=== PATIENT | male | born 1945 | race Caucasian/White ===

== ENCOUNTER 2020-08-25 12:25 | Emergency (ER) | payer MEDICARE, OTHER, SELFPAY ==
[2020-08-25] VITALS (29 sets, daily range): BP systolic 101–142; BP diastolic 53–95; PULSE 89–110; RESP 16–25; TEMP 36.6–37.4; O2SAT 93–98
--- NOTE | ~2020-08-25 | XR_ITS ---
EXAMINATION: XR chest 1V portable EXAM DATE: 08/25/2020 13:37 INDICATION: Bibasilar crackles. TECHNIQUE: Portable AP frontal chest x-ray was obtained. There is no prior study for comparison. FINDINGS: Small amount of ill-defined left basilar airspace disease. The lungs are otherwise clear. There are no pleural effusions. The cardiomediastinal silhouette is within normal limits. There is no pneumothorax suspected. There is moderate right glenohumeral primary osteoarthritis. IMPRESSION: Small amount of ill-defined left basilar airspace disease, possible developing edema or i nfection. Reviewed, dictated and finalized at location B. OR VALIDATION ENGINEER IMPRESSION: Small amount of ill-defined left basilar airspace disease, possible developing edema or infection.
--- NOTE | 2020-08-25 12:32 | ED.GENADULT ---
HPI - General Adult General Source: family and EMS Mode of arrival: ambulatory Limitations: no limitations History of Present Illness HPI narrative: Juma is a 74M with a complex PMH of Parkinson's disease, BPH and prostate cancer with chronic indwelling catheter, recurrent UTI, HLD and dementia was brought to the ED by EMS. He has been total care for some time but has become worse. He had 4+ absence seizures over the weekend, more agitation/aggression and he is trying to get out of bed when he cannot walk. He has declined antieleptics in the past because they make him altered. His family can no longer take care of him and thinks he needs placement. They do not want Hospice at this time and want continued meds and therapies but he is DNR and DNI. Related Data Home Medications Medication Instructions Recorded Confirmed [facility] XP 1 drp OPHTHALMIC (EYE) Q2H 09/03/19 08/25/20 carbidopa-levodopa 1.5 tablet PO QID 09/03/19 08/25/20 up4 Probiotics Adult 1 cap PO DAILY 09/03/19 08/25/20 levetiracetam 250 mg PO BID 08/25/20 08/25/20 Allergies Allergy/AdvReac Type Severity Reaction Status Date / Time No Known Allergies Allergy Verified 01/28/20 08:33 Review of Systems Constitutional: Constitutional: Reports no additional constitutional complaints Eyes: Eyes: Reports no additional eye complaints ENT: Reports system reviewed and no additional complaints, except as documented Cardiovascular: Cardiovascular: Reports no additional cardiovascular complaints Respiratory: Respiratory: Reports no additional respiratory complaints Gastrointestinal: Gastrointestinal: Reports no additional gastrointestinal complaints Genitourinary: Genitourinary: Reports no additional male genitourinary complaints Musculoskeletal: Musculoskeletal: Reports as per HPI Integumentary/Breasts: Skin/Breast: Reports system reviewed and no additional complaints, except as docu Neurologic: Reports as per HPI Psychiatric: Psychiatric: Reports as per HPI Endocrine: Endocrine: Reports no additional endocrine complaints Hematologic/Lymphatic: Hematologic/Lymphatic: Reports no additional hematologic/lymphatic complaints Allergic/Immunologic: Allergic/Immunologic: Reports no additional allergic/immunologic complaints [facility] Past Medical History Medical History (Updated 08/27/20 @ 00:00 by Background Daemon) VANNESA (acute kidney injury) Amputation of left little finger Anemia Cataract Dementia Depression Generalized muscle weakness Hyperlipidemia Parkinsons disease Prostate cancer Surgical History Surgical History H/O hand surgery pinkey finger amputation due to work accident History of cataract removal with insertion of prosthetic lens Family History Family History Father Acute myocardial infarction Mother Family history of coronary artery disease Sibling Malignant neoplasm of prostate Social History Social History Smoking status: Never smoker Alcohol intake: never Substance use: never Substance use type: does not use Gender identity (if verbalized by the patient): Male Spiritual care concerns: No Agree to blood products: Yes Exam Const: General: no acute distress and alert Orientation/consciousness: patient oriented x3 Limitations: No altered mental status HENMT: Head: normal to inspection Eyes: Conjunctivae: conjunctivae normal Pupils: Equal, round and reactive pupils present Neck: Neck: normal visual inspection Chest: Chest palpation & inspection: normal inspection of the chest Resp: Effort & Inspection: normal respiratory effort Other: bibasilar crackles Cardio: Rate: regular rate Rhythm: regular rhythm GI: Inspection: non-distended GI Palp: Yes Soft to palpation, No Tenderness to palpation present (GI) and No Guarding due to palp
--- NOTE | 2020-08-25 12:41 | ECG_ITS ---
Measurements Intervals [place] Rate: 94 P: 50 MD: 136 QRS: 61 QRSD: 88 T: 57 QT: 335 QTc: 419 Interpretive Statements SINUS RHYTHM INCOMPLETE RIGHT BUNDLE BRANCH BLOCK BASELINE ARTIFACT- I, II, III, AVR, AVL, AVF, V1 BORDERLINE ECG Electronically Signed On 08-25-2020 13:04:04 E BUSINESS SPECIALIST by Samm Guzman D.O.
[2020-08-25 13:09] LABS: Basophils Absolute Auto 0.06 K/mm3 (0.00-0.10); Basophils Percent Auto 0.8 % (0.0-1.0); Eosinophils Absolute Auto 0.06 K/mm3 (0.02-0.50); Eosinophils Percent Auto 0.8 % (1.0-6.0); Hematocrit 47.4 % (37.0-46.0); Hemoglobin 16.1 g/dL (12.4-15.3); Immature Granulocyte Absolute 0.06 K/mm3 (0.00-0.00); Immature Granulocyte Percent A 0.8 % (0.0-0.0); Lymphocytes Absolute Auto 1.73 K/mm3 (1.10-4.50); Mean Corpuscular Hemoglobin 32.3 pg (27.0-31.0); Mean Corpuscular Volume 95.2 fL (78.0-102.0); Mean Platelet Volume 10.3 fl (8.7-11.0); Monocytes Absolute Auto 0.59 K/mm3 (0.10-0.90); Monocytes Percent Auto 8.2 % (2.0-11.0); Neutrophils Absolute Auto 4.7 K/mm3 (1.7-7.2); Neutrophils Percent Auto 65.4 % (50.0-70.0); Platelet Count Result 243 K/mm3 (150-420); Red Blood Count 4.98 M/mm3 (4.70-6.10); Red Cell Distribution Width 12.7 % (11.6-14.4); White Blood Count 7.2 K/mm3 (4.8-10.8)
[2020-08-25 13:11] LABS: Appearance Urine Sl Cloudy (Clear); Bilirubin Urine Negative (Negative); Color Urine Yellow (Yellow); Glucose Urine UA Negative (Negative); Ketones Urine Trace (Negative); Leukocyte Esterase Ur Trace (Negative); Nitrate Urine Positive (Negative); Protein Urine Negative (Negative); Specific Grav Ur >= 1.030 (1.010-1.020); Urobilinogen Urine 0.2 mg/dL (0.2-1.0); pH Urine 5.5 (5.0-8.0)
[2020-08-25 13:19] LABS: Add Urine Microscopic? YES; Bacteria Urine 3+ /hpf; Blood Urine Trace-Intact (Negative); RBC Urine 0-2 /hpf (0-2); Squamous Epithelial Cell Urine Rare /hpf (Few); WBC Urine 0-3 /hpf (0-3)
[2020-08-25 13:28] LABS: Alanine Aminotransferase 8 U/L (16-63); Albumin Level 3.6 g/dL (3.4-5.0); Alkaline Phosphatase 89 U/L (46-116); Anion Gap 9 mmol/L (8-16); Aspartate Amino Transferase 40 U/L (15-37); Bilirubin,Total 0.7 mg/dL (0.00-1.00); Blood Urea Nitrogen 17 mg/dL (7-18); Carbon Dioxide 26 mmol/L (21-32); Chloride 104 mmol/L (98-108); Creatine Kinase 777 U/L (39-308); Estimated Glomerular Filt Rate 59; Glucose 95 mg/dL (70-99); Magnesium 2.1 mg/dL (1.8-2.4); Osmolality Calculated 289 mOsm/kg (285-295); Potassium 3.7 mmol/L (3.5-5.1); Sodium 139 mmol/L (136-145); Total Protein 7.3 g/dL (6.4-8.2); Troponin I 11.1 ng/L (0.00-60.4)
[2020-08-25 13:29] LABS: BNP 63 pg/mL (0-100); Lactic Acid Reflex 1.1 mmol/L (0.4-2.0)
[2020-08-25 13:30] LABS: INR 0.9; Prothrombin Time 10.3 Seconds (9.50-12.10)
[2020-08-25 13:35] LABS: SARS-CoV-2 Ag Negative (Negative)
[2020-08-25 13:36] LABS: Influenza Control Valid (Valid)
--- NOTE | 2020-08-25 14:24 | ED.GENADULT ---
HPI - General Adult General Chief complaint: Weakness Stated complaint: ambulance Time Seen by Provider: 08/25/20 12:32 Source: family and EMS Mode of arrival: ambulatory Limitations: no limitations Related Data Home Medications Medication Instructions Recorded Confirmed [facility] XP 1 drp OPHTHALMIC (EYE) Q2H 09/03/19 08/25/20 carbidopa-levodopa 1.5 tablet PO QID 09/03/19 08/25/20 up4 Probiotics Adult 1 cap PO DAILY 09/03/19 08/25/20 levetiracetam 250 mg PO BID 08/25/20 08/25/20 Allergies Allergy/AdvReac Type Severity Reaction Status Date / Time No Known Allergies Allergy Verified 01/28/20 08:33 [facility] Past Medical History Medical History VANNESA (acute kidney injury) Amputation of left little finger Anemia Cataract Dementia Depression Generalized muscle weakness Hyperlipidemia Parkinsons disease Prostate cancer Surgical History Surgical History H/O hand surgery pinkey finger amputation due to work accident History of cataract removal with insertion of prosthetic lens Family History Family History Father Acute myocardial infarction Mother Family history of coronary artery disease Sibling Malignant neoplasm of prostate Social History Social History Smoking status: Never smoker Alcohol intake: never Substance use: never Substance use type: does not use Gender identity (if verbalized by the patient): Male Spiritual care concerns: No Agree to blood products: Yes Course Vital Signs Vital signs: Vital Signs Temperature 98 F 08/25/20 12:25 Pulse Rate 99 08/25/20 12:25 Respiratory Rate 21 H 08/25/20 12:25 Blood Pressure 133/94 H 08/25/20 12:25 Pulse Oximetry 98 08/25/20 12:25 Temperature 98 F 08/25/20 12:25 Pulse Rate 110 H 08/25/20 15:16 Respiratory Rate 22 H 08/25/20 15:16 Blood Pressure 131/84 08/25/20 15:16 Pulse Oximetry 93 08/25/20 14:30 Medical Decision Making Vital Signs Vital Signs: Vital Signs Temperature 98 F 08/25/20 12:25 Pulse Rate 99 08/25/20 12:25 Respiratory Rate 21 H 08/25/20 12:25 Blood Pressure 133/94 H 08/25/20 12:25 Pulse Oximetry 98 08/25/20 12:25 Temperature 98 F 08/25/20 12:25 Pulse Rate 110 H 08/25/20 15:16 Respiratory Rate 22 H 08/25/20 15:16 Blood Pressure 131/84 08/25/20 15:16 Pulse Oximetry 93 08/25/20 14:30 Lab Data Result diagrams: 08/25/20 13:02 08/25/20 13:02 Labs: Lab Results 08/25/20 08/25/20 08/25/20 Range/Units 12:42 13:02 13:02 WBC 7.2 (4.8-10.8) K/mm3 RBC 4.98 (4.70-6.10) M/mm3 Hgb 16.1 H (12.4-15.3) g/dL Hct 47.4 H (37.0-46.0) % MCV 95.2 (78.0-102.0) fL MCH 32.3 H (27.0-31.0) pg MCHC 34.0 (32.0-36.0) g/dL RDW 12.7 (11.6-14.4) % Plt Count 243 (150-420) K/mm3 MPV 10.3 (8.7-11.0) fl Immature Gran % (Auto) 0.8 H (0.0-0.0) % Neut % (Auto) 65.4 (50.0-70.0) % Lymph % (Auto) 24.0 (18.0-42.0) % [place] % (Auto) 8.2 (2.0-11.0) % Eos % (Auto) 0.8 L (1.0-6.0) % Baso % (Auto) 0.8 (0.0-1.0) % Lymph # (Auto) 1.73 (1.10-4.50) K/mm3 [place] # (Auto) 0.59 (0.10-0.90) K/mm3 Eos # (Auto) 0.06 (0.02-0.50) K/mm3 Baso # (Auto) 0.06 (0.00-0.10) K/mm3 Abs Immat Gran (auto) 0.06 H (0.00-0.00) K/mm3 Absolute Neuts (auto) 4.7 (1.7-7.2) K/mm3 Absolute Nucleated RBC 0.00 (0.00-0.00) K/mm3 Nucleated RBC % 0.0 (0-0.0) % PT 10.3 (9.50-12.10) Seconds INR 0.9 Sodium (136-145) mmol/L Potassium (3.5-5.1) mmol/L Chloride (98-108) mmol/L Carbon Dioxide (21-32) mmol/L Anion Gap (8-16) mmol/L BUN (7-18) mg/dL Creatinine (0.70-1.30) mg/dL Estim Creat Clear Calc Estimated GFR (59 -
[2020-08-25] MEDS: SERTRALINE HCL 50 MG TABLET PO (15:38)
[2020-08-25] MEDS: CARBIDOPA/LEVODOPA 25/100 MG CR TABLET 1 TABLET PO (15:38)
[2020-08-25] MEDS: levETIRAcetam 500 MG TABLET 250 MG PO ×2 (15:38→21:38)
--- NOTE | 2020-08-25 15:49 | PC.NURSE ---
PT TO BE TRANSFERRED TO ROOM 207 AN ER HOLD. TELEPHONE REPORT PROVIDED TO JACQUE HONG.
--- NOTE | 2020-08-25 16:33 | PC.NURSE ---
1600 Patient up to Room 207 via gurney from ER. Patient awake and alert. Answers yes/no to simple questions. Vital signs: BP 107/77, P 100, R 20, SPO2 92% on room air, temp 98.9. Siderails up x2.
[2020-08-25] MEDS: MEMANTINE 5 MG TABLET 10 MG PO (17:04)
[2020-08-25] MEDS: NYSTATIN CREAM 15 GM TUBE 1 APPLIC TOPICAL (17:04)
[2020-08-25] MEDS: CARBIDOPA/LEVODOPA 25/100 MG CR TABLET 1.5 TABLET PO (21:38)
--- NOTE | 2020-08-25 21:48 | PC.NURSE ---
pt pulled out iv, Dr Olvera notified and orders given to dc iv at this time, also orders to not give eye drops while pt is sleeping
--- NOTE | 2020-08-26 02:26 | PC.NURSE ---
pt sleeping, no distress noted
[2020-08-26 07:25] VITALS: BP 130/78; PULSE 102; RESP 20; TEMP 36.9; O2SAT 92
[2020-08-26] MEDS: CARBIDOPA/LEVODOPA 25/100 MG CR TABLET 1.5 TABLET PO ×3 (09:28→17:37)
[2020-08-26] MEDS: MEMANTINE 5 MG TABLET 10 MG PO ×2 (09:28→17:37)
[2020-08-26] MEDS: levETIRAcetam 500 MG TABLET 250 MG PO (09:29)
[2020-08-26] MEDS: SERTRALINE HCL 50 MG TABLET PO (09:29)
[2020-08-26] MEDS: NYSTATIN CREAM 15 GM TUBE 1 APPLIC TOPICAL (09:56)
[2020-08-26] MEDS: SODIUM CHLORIDE 0.9% IV 500 ML IV CONT (10:55)
[2020-08-26] MEDS: DEXTROSE 5%/LACTATED RINGERS 1,000 ML 125 ML IV CONT (12:03)
--- NOTE | 2020-08-26 15:13 | PCCCNOTE ---
call to patient's Nickie Rivera- per patient has been total care for some time- states she assists with feeding at home- he is usaully able to handle soft foods and bottled tea without difficulty by mouth when fed. advised of pending swallow evaluation and concerns about patient not being able to swallow without aspiration into lungs. Instructed that if he is unable to swallow safely- there may be a question of needing a feeding tube. states she really feels he will be able to swallow- that they had tried thickened liquids in the past and the patient would not drink. Is taking Ensure successfully at home. Advised we would discuss after swallow eval completed. Patient has been accepted to [facility] and per Trisha- [facility]. is agreeable to discharge to [facility] and states will most likely need transport via ambulance. If patient can sit in w/c- could consider facility van. Per [facility]- if needed please let know as soon as possible. They can accept this evening to facility if needed. Fax d/c instructions to [phone] Call report to [phone]
[2020-08-26 16:45] VITALS: BP 116/77; PULSE 105; RESP 18; TEMP 37.3; O2SAT 90
--- NOTE | 2020-08-26 17:15 | PC.NURSE ---
Report called to Val at [facility]. Patient and aware patient is to be discharge today.
[2020-08-26 17:23] VITALS: BP 116/77; PULSE 105; RESP 18; TEMP 37.3; O2SAT 90
--- NOTE | 2020-08-26 18:30 | PC.NURSE ---
Ambulance here to transport patient to [facility]. Tolerated transfer to stretcher well. All discharge paper work given to EMS to be given to [facility] staff. Patient left via stretcher accompanied by EMS. IV site removed, tip intact. Dressing applied to site. Tillman left in place at discharge.
--- NOTE | 2020-09-19 20:51 | PC.NURSE ---
pt's iv fluids ended at 2004 on 08/26/2020
== END 2020-08-26 18:30 ==
LOC: CHSED 15:37 → CHS2ND 16:21
PROVIDERS: Emergency Provider Emergency Medicine; PCP Family Medicine
DX: G20 Parkinson's disease (principal); R53.81 Other malaise; E78.5 Hyperlipidemia, unspecified; Z85.46 Personal history of malignant neoplasm of prostate; Z20.828 Contact with and (suspected) exposure to other viral communicable diseases
CPT/HCPCS: 36415; 71045; 80053; 81001; 82550; 83605; 83735; 83880; 84484; 85025; 85610; 87426; 87804; 93005; 96360; 99283; 99284; A9270; J7040; J7121